=== PATIENT | male | born 1985 | race Caucasian/White ===

== ENCOUNTER 2020-06-27 14:39 | Emergency (ER) | payer OTHER ==
[~2020-06-27] VITALS: Ht 182 cm; Wt 145.0 kg
[2020-06-27] MEDS ORDERED: diphenhydrAMINE 25 MG TAB (BENADRYL) PO ONE (15:00)
[2020-06-27] MEDS ORDERED: FAMOTIDINE 20 MG (PEPCID) TABLET PO ONE (15:15)
--- NOTE | 2020-06-27 15:16 | ED General ---
General Chief Complaint: Allergic Reaction Stated Complaint: STUNG BY SOMETHING / ALLERGIC REACTION Nursing Triage Note: ARRIVED VIA AMB TO [facility]. COMPLAINS OF BEING STUNG BY A FLYING INSECT 10 MINS AGO AND IS HAVING A REACTION. HAS NOT TAKEN BENADRYL AND DOES NOT CARRY HIS PRESCRIBED EPI PEN. Nursing Sepsis Screen: No Definite Risk History of Present Illness Date Seen by Provider: Jun 27, 2020 Time Seen by Provider: 14:40 Initial Comments 35-year-old male presents after an insect sting to his right arm. He did not see the insect to know if it was a bee or wasp but he has had previous anaphylactic reactions to these. He has an EpiPen but not with him. He has had no medications prior to arrival. He denies any difficulty breathing, swelling to his lips or tongue. He had immediate onset of swelling and rash to his right forearm at the site of the sting. Timing/Duration: 1/2 Hour Severity: Mild Associated Systoms: Denies Symptoms Allergies and Home Medications Allergies Coded Allergies: insect venom (Verified Allergy, Severe, Anaphylaxis, 06/27/20) Patient Home Medication List Home Medication List Reviewed: Yes Review of Systems Review of Systems Constitutional: no symptoms reported, see HPI Respiratory: no symptoms reported, see HPI; No short of breath, No wheezing Skin: see HPI, pruritus, rash, other (Swelling and mild erythema to the right forearm, proximally) All Other Systems Reviewed Negative Unless Noted: Yes Past Vdohxsj-Mhohee-Awtgcs Hx Past Med/Social Hx: Reviewed Nursing Past Med/Soc Hx Patient Social History Alcohol Use: Denies Use Drug of Choice: POT Smoking Status: Current Everyday Smoker Recent Infectious Disease Expo: No Recent Hopitalizations: No Seasonal Allergies Seasonal Allergies: No Past Medical History Surgeries: Yes Orthopedic Respiratory: No Cardiac: No Neurological: No Genitourinary: No Gastrointestinal: No Musculoskeletal: No Endocrine: Yes (NON COMPLIANT WITH INSULIN. ) Diabetes, Insulin dep Cancer: No Psychosocial: No Integumentary: No Physical Exam Vital Signs Vital Signs - First Documented 06/27/20 14:40 Temp 37.0 Pulse 106 Resp 16 B/P (MAP) 153/80 (104) Pulse Ox 98 O2 Delivery Room Air Capillary Refill : Less Than 3 Seconds Height, Weight, BMI Height: '" Weight: lbs. oz. kg; 43.00 BMI Method: General Appearance: No Apparent Distress, WD/WN HEENT: PERRL/EOMI, TMs Normal, Normal ENT Inspection, Pharynx Normal Neck: Full Range of Motion, Normal Inspection, Non Tender, Supple Respiratory: Chest Non Tender, Lungs Clear, Normal Breath Sounds, Other (SaO2 99% on room air) Cardiovascular: Regular Rate, Rhythm, No Edema, No Murmur, Normal Peripheral Pulses Gastrointestinal: Normal Bowel Sounds, Non Tender, Soft Neurologic/Psychiatric: Alert, Oriented x3, No Motor/Sensory Deficits, Normal Mood/Affect Skin: Normal Color, Warm/Dry, Erythema (Mild right proximal forearm, trace swelling), Rash (Macular) Progress/Results/Core Measures Suspected Sepsis Recent Fever Within 48 Hours: No Infection Criteria Present: None New/Unexplained Altered Menta: No Sepsis Screen: No Definite Risk SIRS Temperature: Pulse: 106 Respiratory Rate: 16 Blood Pressure 153 /80 Mean: 104 Results/Orders My Orders Orders - JAYDEN TOLLIVER Diphenhydramine Tablet (Benadryl Tablet) (06/27/20 15:00) Famotidine Tablet (Pepcid Tablet) (06/27/20 15:15) Dexamethasone Injection (Decadron Inje (06/27/20 15:15) Medications Given in ED Current Medications Medications Dose Ordered Sig/Lulú Route Start Time Stop Time Status Last Admin Dose Admin Dexamethasone Sodium Phosphate 10 mg ONCE ONCE IM 06/27/20 15:15 06/27/20 15:16 DC 06/27/20 15:11 10 MG Diphenhydramine HCl 50 mg ONCE ONCE PO 06/27/20 15:00 06/27/20 15:01 DC 06/27/20 14:59 50 MG Famotidine 20 mg ONCE ONCE PO 06/27/20 15:15 06/27/20 15:16 DC 06/27/20 15:11 20 MG Vital Signs/I&O 06/27/20 14:40 Temp 37.0 Pulse 106 Resp 16 B/P (MAP) 153/80 (104) Pulse Ox 98 O2 Delivery Room Air Capillary Refill : Less Than 3 Seconds Blood Pressure Mean: 104 Progress Note : Time: 14:40 Progress Note Patient seen and evaluated, no signs of anaphylaxis at this time. Will give Benadryl 50 mg orally and Pepcid 20 mg orally, with Decadron 10 mg IM 1530 patient having no further swelling or rash on the right forearm. No difficulty breathing, no swelling to tongue or lips. Vital signs have remained stable and SaO2 is 99% on room air. Discharge instructions and return precautions reviewed with the patient. Departure Impression Primary Impression: Insect sting Qualified Codes: T63.481A - Toxic effect of venom of other arthropod, accidental (unintentional), initial encounter Disposition: HOME, SELF-CARE Condition: Improved Departure-Patient Inst. Decision time for Depature: 15:30 Patient Instructions: Insect Bites and Stings (DC) Add. Discharge Instructions: Take Benadryl 25-50 mg every 8 hours for the next 3 to 4 days Take Pepcid 20 mg twice daily for the next 3 to 4 days Take kfcr-cfs-qcxmrsu Zyrtec or Claritin 1 daily. Keep your EpiPen with you at all times. Return to the emergency department if difficulty breathing, swelling of your lip or tongue, or new urgent concerns. All discharge instructions reviewed with patient and/or family. Voiced understanding. JAYDEN TOLLIVER Jun 27, 2020 15:16
[2020-06-27 16:00] VITALS: BP 158/83
== END 2020-06-27 15:59 | disposition home or self-care (01) ==
LOC: ER 14:43
DX: T63.481A Toxic effect of venom of other arthropod, accidental (unintentional), initial encounter (principal); I10 Essential (primary) hypertension; F17.200 Nicotine dependence, unspecified, uncomplicated; Z91.038 Other insect allergy status
CPT/HCPCS: 99284

== ENCOUNTER 2020-08-02 10:09 | Emergency (ER) | payer SELFPAY ==
[~2020-08-02] VITALS: Ht 182.8 cm; Wt 160.0 kg
--- NOTE | 2020-08-02 10:52 | Diagnostic Imaging Report ---
Indication: Fall with right shoulder injury. Time of exam: 10:48 AM 3 views of the right shoulder were obtained. Glenohumeral and acromioclavicular alignment are normal. Acromial humeral space is normal. No fracture or dislocation is identified. Impression: No acute bony abnormality is detected. Dictated by: Dictated on workstation # [id number]
--- NOTE | 2020-08-02 10:53 | Diagnostic Imaging Report ---
Indication: Fall with right shoulder injury. Time of exam: 10:46 AM 2 views of the right clavicle were obtained. Acromioclavicular alignment appears to be within normal limits. No clavicle fracture seen. No definite acromioclavicular separation is identified. Impression: No acute abnormality is detected. Dictated by: Dictated on workstation # [id number]
[2020-08-02] MEDS ORDERED: ACHD5005 PO (11:46)
--- NOTE | 2020-08-02 11:47 | ED Upper Extremity ---
General Chief Complaint: Trauma-Non Activation Stated Complaint: R SHOULDER PAIN Nursing Triage Note: AMB TO ROOM REPORTS SLIPPED IN MUD AT WORK AND FELL ON R SHOULDER,BUT DECLINED TO DECLAIR WORK COMB. C/O PAIN IN R SHOULDER Nursing Sepsis Screen: No Definite Risk Source: patient Exam Limitations: no limitations History of Present Illness Date Seen by Provider: August 02, 2020 Time Seen by Provider: 10:30 Initial Comments This 35-year-old gentleman presents to the emergency room with right shoulder injury after falling on a worksite. He was carrying a board on his left shoulder and slipped in the mud. He tried to catch himself on his right arm which caused injury. He has significant pain with any attempted range of motion in the shoulder. There is no deformity on exam. Elbow and distal right upper extremity appear normal. He denies any other injury such as head or neck injury. He declines need for work comp paperwork. Allergies and Home Medications Allergies Coded Allergies: insect venom (Verified Allergy, Severe, Anaphylaxis, 06/27/20) Home Medications Hydrocodone/Acetaminophen 1 Each Tablet, 1 TAB PO Q4H PRN for PAIN-BREAKTHROUGH Prescribed by: NANCY MADRIGAL on 08/02/20 1147 Patient Home Medication List Home Medication List Reviewed: Yes Review of Systems Constitutional: no symptoms reported EENTM: no symptoms reported Respiratory: no symptoms reported Cardiovascular: no symptoms reported Gastrointestinal: no symptoms reported Genitourinary: no symptoms reported Musculoskeletal: see HPI Skin: no symptoms reported Psychiatric/Neurological: No Symptoms Reported Past Bpsuhly-Bsbcuw-Anaspc Hx Past Med/Social Hx: Reviewed Nursing Past Med/Soc Hx Patient Social History Alcohol Use: Denies Use Drug of Choice: POT Smoking Status: Never a Smoker Recent Infectious Disease Expo: No Recent Hopitalizations: No Seasonal Allergies Seasonal Allergies: No Past Medical History Surgeries: Yes Orthopedic Respiratory: No Cardiac: Yes Hypertension Neurological: No Genitourinary: No Gastrointestinal: No Musculoskeletal: No Endocrine: Yes (NON COMPLIANT WITH INSULIN. ) Diabetes, Insulin dep Cancer: No Psychosocial: No Integumentary: No Physical Exam Vital Signs Vital Signs - First Documented 08/02/20 10:27 Pulse 93 Resp 18 B/P (MAP) 180/124 (142) Capillary Refill : Less Than 3 Seconds Height, Weight, BMI Height: '" Weight: lbs. oz. kg; 47.00 BMI Method: General Appearance: WD/WN, no apparent distress, obese HEENT: normal ENT inspection Neck: non-tender, normal inspection Cardiovascular: regular rate, rhythm, no edema, no murmur, other (Normal right radial pulse) Respiratory: lungs clear, normal breath sounds, no respiratory distress Shoulder: limited ROM, pain (There is pain with range of motion of the right shoulder and with palpation around the shoulder joint and clavicle.) Elbow/Forearm: normal inspection, non-tender, no evidence of injury, normal ROM, Right Wrist: Yes normal inspection, Yes non-tender, Yes no evidence of injury, Yes normal ROM Hand: normal inspection, non-tender, no evidence of injury, normal ROM, Right Neurologic/Psychiatric: 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 Progress/Results/Core Measures Results/Orders My Orders Orders - NANCY VERNON MD Shoulder, Right, 3 Views (08/02/20 10:36) Clavicle, Right (08/02/20 10:36) Vital Signs/I&O 08/02/20 10:27 Pulse 93 Resp 18 B/P (MAP) 180/124 (142) Blood Pressure Mean: 142 Progress Progress Note : Time: 12:02 Progress Note X-rays were obtained of the right shoulder and clavicle. No fractures or dislocations were identified. Given the clunking crepitus on his exam with range of motion, a significant soft tissue injury is suspected. He is advised to use the sling and follow-up with an orthopedic provider soon as possible. He declined Workmen's Comp. or occupational health paperwork. Nursing staff noted his blood pressure to be quite elevated prior to discharge. This was addressed with the patient. He states he is aware of his high blood pressure and does not want to treat it. I offered him a prescription for antihypertensives. He reports he had been prescribed lisinopril a couple years ago but elected not to take it. I educated him on the long-term risks associated with untreated hypertension including heart disease, stroke, and renal failure. He acknowledged my warnings but stated he would not take the medication if I prescribed it. Patient was discharged without a prescription for an tihypertensives. Patient also stated that he previously took medication for diabetes but no longer does that either. Diagnostic Imaging Diagonstic Imaging: Xray Plain Films/CT/US/NM/MRI: other (Shoulder and clavicle) Comments Shoulder and clavicle x-rays reviewed by me and reports reviewed. See reports below: NAME: DEBORAH CONNELLY [facility] REC#: [id number] PT STATUS: REG ER : 1985 PHYSICIAN: NANCY VERNON MD ADMIT DATE: 08/02/20/ER Draft Date of Exam:08/02/20 SHOULDER, RIGHT, 3 VIEWS Indication: Fall with right shoulder injury. Time of exam: 10:48 AM 3 views of the right shoulder were obtained. Glenohumeral and acromioclavicular alignment are normal. Acromial humeral space is normal. No fracture or dislocation is identified. Impression: No acute bony abnormality is detected. Dictated on workstation # [id number] Dict: 08/02/20 1049 Trans: 08/02/20 1052 CVOrthoScan [id number] Interpreted by: LUNA EDGAR MD NAME: DEBORAH CONNELLY [facility] REC#: [id number] PT STATUS: REG ER : 1985 PHYSICIAN: NANCY VERNON MD ADMIT DATE: 08/02/20/ER Draft Date of Exam:08/02/20 CLAVICLE, RIGHT Indication: Fall with right shoulder injury. Time of exam: 10:46 AM 2 views of the right clavicle were obtained. Acromioclavicular alignment appears to be within normal limits. No clavicle fracture seen. No definite acromioclavicular separation is identified. Impression: No acute abnormality is detected. Dictated on workstation # [id number] Dict: 08/02/20 1050 Trans: 08/02/20 1054 CVB [id number] Interpreted by: LUNA EDGAR MD Departure Impression Primary Impression: Right shoulder injury Qualified Codes: S49.91XA - Unspecified injury of right shoulder and upper arm, initial encounter Additional Impressions: Fall on same level Qualified Codes: W18.30XA - Fall on same level, unspecified, initial encounter Hypertension Qualified Codes: I10 - Essential (primary) hypertension Disposition: 01 HOME, SELF-CARE Condition: Stable Departure-Patient Inst. Decision time for Depature: 11:44 Referrals: NO,LOCAL PHYSICIAN (PCP) Primary Care Physician MILADYS JOYCE MD, MICHAEL P MD Patient Instructions: Rotator Cuff Injury Add. Discharge Instructions: Follow-up with an orthopedic provider soon as possible. You may need a referral from a primary care provider if your insurance requires it. Contact information for local orthopedic providers, Dr. Cross and Dr. Joyce, is listed below. Use ibuprofen up to 600 mg every 6 hours as needed for primary pain control. Then add either Tylenol (acetaminophen) or hydrocodone as prescribed for additional pain relief if needed. Icing in 20-minute intervals may also be helpful. Use the sling for comfort. Avoid use of the right arm until you are seen in fo llow-up. Call with questions or concerns. Return to the ER if you have worsening symptoms. All discharge instructions reviewed with patient and/or family. Voiced understanding. Scripts Hydrocodone/Acetaminophen (Hydrocodone-Acetamin 5-325 mg) 1 Each Tablet 1 TAB PO Q4H PRN for PAIN-BREAKTHROUGH, #12 TAB Prov: NANCY VERNON MD 08/02/20 Work/School Note: Work Release Form Date Seen in the Emergency Department: August 02, 2020 Return to Work: August 03, 2020 Other Restrictions Listed Below: No use of right arm until cleared by a medical provider. NANCY VERNON MD August 02, 2020 11:47
[2020-08-02 12:04] VITALS: BP 174/120
== END 2020-08-02 12:02 | disposition home or self-care (01) ==
LOC: EDUNIT# 10:09 → ER 10:11
DX: S49.91XA Unspecified injury of right shoulder and upper arm, initial encounter (principal); I10 Essential (primary) hypertension; E11.9 Type 2 diabetes mellitus without complications; E66.9 Obesity, unspecified; Z68.42 Body mass index [BMI] 45.0-49.9, adult; Z91.14 Patient's other noncompliance with medication regimen; W01.0XXA Fall on same level from slipping, tripping and stumbling without subsequent striking against object, initial encounter
CPT/HCPCS: 73000; 73030; 99282; L3650